=== PATIENT | male | born 1965 | race Caucasian/White ===

== ENCOUNTER 2022-06-27 17:10 | Emergency (ER) | payer BC ==
[~2022-06-27] VITALS: Ht 188 cm; Wt 86.4 kg
[2022-06-27] MEDS ORDERED: MORPHINE 4 MG/ML 1ML VIAL/SYRINGE IV ONE ×2 (17:35→22:30)
[2022-06-27] MEDS ORDERED: fentaNYL 100 MCG/2 ML INJECTION IV ONE ×4 (18:05→20:10)
[2022-06-27] MEDS: NS 1,000 ML IV SCH ×2 (18:52→19:42)
[2022-06-27] MEDS: propofoL 200 MG/20 ML VIAL IV.PROC PRN ×4 (19:41→19:49)
[2022-06-27] MEDS ORDERED: propofoL 200 MG/20 ML VIAL IV ONE (20:10)
[2022-06-27 22:17] LABS: RSV AMPLIFICATION NEGATIVE (NEGATIVE)
[2022-06-27] MEDS ORDERED: NICOTINE 21MG/24HR 1 EA TRANSDERMAL TD ONE (22:55)
[2022-06-27 23:05] VITALS: BP 152/85
== END 2022-06-27 23:07 | disposition short-term general hospital (02) ==
LOC: M ED 22:34
DX: S32.425A Nondisplaced fracture of posterior wall of left acetabulum, initial encounter for closed fracture (principal); S73.015A Posterior dislocation of left hip, initial encounter; V58.2XXA Person on outside of pick-up truck or van injured in noncollision transport accident in nontraffic accident, initial encounter; E11.9 Type 2 diabetes mellitus without complications; I10 Essential (primary) hypertension; K21.9 Gastro-esophageal reflux disease without esophagitis
CPT/HCPCS: 72190; 73502; 73552; 73700; 87631; 93041; 96361; 96374; 96376; 99156; 99157; 99285; J2270; J3010